=== PATIENT | male | born 1985 | race Caucasian/White ===

== ENCOUNTER 2019-07-10 17:34 | Emergency (ER) | payer OTHER, SELFPAY ==
[2019-07-10 17:50] VITALS: BP 149/100; PULSE 80; RESP 20; TEMP 36.6; O2SAT 99
--- NOTE | 2019-07-10 18:16 | ED.EAR ---
HPI - Ear Problem General Chief complaint: Ear Stated complaint: ear wax Time Seen by Provider: 07/10/19 17:45 Source: patient Mode of arrival: ambulatory Limitations: no limitations History of Present Illness HPI Narrative: This is a 33 year old male that presents to the ER for ear wax. Reports wax in both of his ears which bother him. Reports his friend tried to get the wax out of his left ear with tweezers and was unable to. Denies fever or drainage. Related Data Allergies Allergy/AdvReac Type Severity Reaction Status Date / Time No Known Allergies Allergy Unverified 07/27/18 17:34 Review of Systems Review of Systems: Narrative: CONSTITUTIONAL: Denies fever ENT: Denies otalgia. All systems reviewed & are unremarkable except as noted in HPI and below PMFSH Past Medical History Medical History (Updated 07/10/19 @ 20:28 by Kinsey Mosqueda PA-C) History of gastroesophageal reflux (GERD) Exam Narrative: Exam Narrative: GENERAL: Well-appearing, well-nourished, and in no acute distress. HEAD: Normocephalic, atraumatic. EYES: EOMI. ENT: Bilateral cerumen impaction. Left external auditory canal with mild amount of bleeding present EXTREMITIES: Normal range of motion. No edema. SKIN: Warm, dry, no rash. NEURO: No focal deficits. Alert and oriented x3. PSYCH: Normal mood and affect Course Vital Signs Vital signs: Vital Signs Temperature 97.8 F 07/10/19 17:50 Pulse Rate 80 07/10/19 17:50 Respiratory Rate 07/10/19 17:50 Blood Pressure 149/100 H 07/10/19 17:50 Pulse Oximetry 99 07/10/19 17:50 Temperature 97.8 F 07/10/19 17:50 Pulse Rate 80 07/10/19 17:50 Respiratory Rate 20 07/10/19 17:50 Blood Pressure 149/100 H 07/10/19 17:50 Pulse Oximetry 99 07/10/19 17:50 Procedures Ear Wax Removal Both Ears: Ear Wax Removal Date: 07/10/19 Ear Wax Removal Time: 20:28 Cerumenolytic Used: other (debrox) Results: Re-examined: cerumen removed completely (on the right) and some cerumen remains (on the left) TM Examination: TM(s) intact, normal appearance (on the right) and other (unable to vizualize on the left) Ear Canal Exam: bleeding Noted (on the left, this was noted prior to me attempting to remove wax) Patient Tolerated Procedure: well Complications: no problems Technique: ear canal curetted Medical Decision Making MDM Narrative Medical decision making narrative: Patient presents the emergency department for bilateral cerumen impaction. This was completely removed on the right. On the left prior to me trying to remove earwax some mild bleeding was noted and the external auditory canal. Patient's family member had tried to remove the wax with tweezers prior to arrival. Suspect this caused a little bit of trauma to the ear canal. I was unable to completely remove wax on the left. Patient will be sent home with the Debrox that I gave him today to further soften earwax. He was given a primary care doctor for follow-up Vital Signs Vital Signs: Vital Signs Temperature 97.8 F 07/10/19 17:50 Pulse Rate 80 07/10/19 17:50 Respiratory Rate 20 07/10/19 17:50 Blood Pressure 149/100 H 07/10/19 17:50 Pulse Oximetry 99 07/10/19 17:50 Temperature 97.8 F 07/10/19 17:50 Pulse Rate 80 07/10/19 17:50 Respiratory Rate 20 07/10/19 17:50 Blood Pressure 149/100 H 07/10/19 17:50 Pulse Oximetry 99 07/10/19 17:50 Critical Care Time Critical Care Time Critical Care Time: No Discharge Plan Discharge Clinical Impression: Bilateral impacted cerumen Patient Disposition: Home, Self-Care Condition: Stable Instructions: Ear Foreign Body (ED) Additional Instructions: Return to the emergency department if you experience fever, ear pain, abnormal drainage from your ear, or any other symptoms that are concerning to you Instill eardrops in your left ear to help soften the wax. We removed all the wax on
[2019-07-10] MEDS: CARBAMIDE PEROXIDE 6.5% OT SOLN 15 ML BTL 5 DROP EACH EAR (18:27)
[2019-07-10 20:33] VITALS: BP 137/80; PULSE 80; RESP 20; TEMP 36.7; O2SAT 99
== END 2019-07-10 20:35 | disposition home or self-care (01) ==
PROVIDERS: Emergency Provider Emergency Medicine
DX: H61.23 Impacted cerumen, bilateral (principal); K21.9 Gastro-esophageal reflux disease without esophagitis
CPT/HCPCS: 69210; 99283; A9270

== ENCOUNTER 2019-09-27 19:14 | Emergency (ER) | payer OTHER, SELFPAY ==
[2019-09-27 19:16] VITALS: BP 133/120; PULSE 80; RESP 18; TEMP 36.5; O2SAT 100
--- NOTE | 2019-09-27 20:09 | ED.GENADULT ---
HPI - General Adult General Chief complaint: Skin/Abscess/Foreign Body Stated complaint: spider bites Time Seen by Provider: 09/27/19 19:38 Source: patient and family History of Present Illness HPI narrative: Patient is 33 years old white male, who comes back with red bumps at the right thigh the back of right leg and right side of the scrotum 3 days ago. After working in [employer]. Patient denies any fever, chills, nausea, vomiting, body aches, diaphoresis. Patient denies a history of staph infection. Patient denies itching. Related Data Allergies Allergy/AdvReac Type Severity Reaction Status Date / Time No Known Allergies Allergy Verified 09/27/19 19:57 Review of Systems Review of Systems: Narrative: CONSTITUTIONAL: Denies fever, chills, or sweats. EYES: Denies visual changes, redness, or discharge. ENT: Denies rhinorrhea, congestion, sore throat, or otalgia. CARDIOVASCULAR: Denies chest pain, palpitations, or edema. RESPIRATORY: Denies cough or dyspnea. GASTROINTESTINAL: Denies abdominal pain, nausea, vomiting, or diarrhea. GENITOURINARY: Denies dysuria or hematuria. SKIN: Denies rash or itching. MUSCULOSKELETAL: Denies back pain, joint pain, or myalgia. NEUROLOGIC: Denies headache, numbness, or weakness. PSYCHIATRIC: Denies anxiety or depression. PMFSH Past Medical History Medical History History of gastroesophageal reflux (GERD) Social History Social History Gender identity (if verbalized by the patient): Male Exam Narrative: Exam Narrative: General appearance: Well-developed, well-nourished Skin: Normal color. A 2 mm pustule surrounded by 1 cm erythema on the back of the right leg, and on the medial side of the right thigh and on the right side of the scrotum. Head: Normocephalic, nontraumatic Eyes: Clear conjunctiva ENT: Oropharynx normal, ears normal, nose normal Neck: Supple, nontender Chest and respiratory: Airway patent, no respiratory distress, no accessory muscle use Heart: Regular rate/rhythm Abdomen: Soft, nontender, no organomegaly, quiet bowel sounds Vascular: Normal peripheral pulses, normal capillary refill. Musculoskeletal: Normal range of motion, nontender back Neurologic: Alert and oriented ?3, [employer] is normal as tested, no gross motor deficit Course Course Emergency Course: Stable Vital Signs Vital signs: Vital Signs Temperature 36.5 C 09/27/19 19:16 Pulse Rate 80 09/27/19 19:16 Respiratory Rate 18 09/27/19 19:16 Blood Pressure 133/120 H 09/27/19 19:16 Pulse Oximetry 100 09/27/19 19:16 Temperature 36.5 C 09/27/19 19:16 Pulse Rate 80 09/27/19 19:16 Respiratory Rate 18 09/27/19 19:16 Blood Pressure 133/120 H 09/27/19 19:16 Pulse Oximetry 100 09/27/19 19:16 Medical Decision Making MDM Narrative Medical decision making narrative: 3 bumps looks like staph infection. Patient is healthy otherwise, denying any associated symptoms. My plan to discharge patient Keflex and Septra. For possible MRSA infection or insect bite3 Vital Signs Vital Signs: Vital Signs Temperature 36.5 C 09/27/19 19:16 Pulse Rate 80 09/27/19 19:16 Respiratory Rate 18 09/27/19 19:16 Blood Pressure 133/120 H 09/27/19 19:16 Pulse Oximetry 100 09/27/19 19:16 Temperature 36.5 C 09/27/19 19:16 Pulse Rate 80 09/27/19 19:16 Respiratory Rate 18 09/27/19 19:16 Blood Pressure 133/120 H 09/27/19 19:16 Pulse Oximetry 100 09/27/19 19:16 Critical Care Time Critical Care Time Critical Care Time: No Discharge Plan Discharge Clinical Impression: Infection, skin, staph,
== END 2019-09-27 20:53 | disposition home or self-care (01) ==
PROVIDERS: Emergency Provider Emergency Medicine
DX: S70.361A Insect bite (nonvenomous), right thigh, initial encounter (principal); S30.863A Insect bite (nonvenomous) of scrotum and testes, initial encounter; S80.861A Insect bite (nonvenomous), right lower leg, initial encounter; B95.8 Unspecified staphylococcus as the cause of diseases classified elsewhere; K21.9 Gastro-esophageal reflux disease without esophagitis; W57.XXXA Bitten or stung by nonvenomous insect and other nonvenomous arthropods, initial encounter
CPT/HCPCS: 99283